=== PATIENT | male | born 1980 | race African-American/Black ===

== ENCOUNTER 2022-09-07 10:30 | Emergency (ER) | payer BC, SELFPAY ==
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
[2022-09-07 10:33] VITALS: BP 170/86; PULSE 114; RESP 16; TEMP 36.4; O2SAT 99; BMI 25.7
[2022-09-07 10:57] VITALS: BP 149/92; PULSE 110; RESP 16; TEMP 37.1; O2SAT 98
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
[2022-09-07] MEDS: Acetaminophen 325 MG TABLET 975 MG PO (11:28)
== END 2022-09-07 12:04 | disposition home or self-care (01) ==
PROVIDERS: Emergency Provider Emergency Medicine
DX: S39.012A Strain of muscle, fascia and tendon of lower back, initial encounter (principal); S76.011A Strain of muscle, fascia and tendon of right hip, initial encounter; V43.62XA Car passenger injured in collision with other type car in traffic accident, initial encounter; Y93.89 Activity, other specified; Y92.415 Exit ramp or entrance ramp of street or highway as the place of occurrence of the external cause; Y99.9 Unspecified external cause status
CPT/HCPCS: 72100; 73502; 99283